=== PATIENT | female | born 1980 ===

== ENCOUNTER 2017-11-22 13:27 | Emergency (ER) | payer OTHER ==
[2017-11-22 13:58] VITALS: BP 120/80; PULSE 88; RESP 19; TEMP 97; O2SAT 100
--- NOTE | 2017-11-22 14:09 | ED PDOC ---
Lower Extremity Pain/Injury Time Seen by Provider: 11/22/17 14:06 Chief Complaint (Nursing): Lower Extremity Problem/Injury Chief Complaint (Provider): left foot pain History Per: Patient History/Exam Limitations: no limitations Onset/Duration Of Symptoms: Days (x10 days) Current Symptoms Are (Timing): Still Present Additional Complaint(s): Andressa Beasley is a 37 year old female, with no significant past medical history, who presents to the emergency department complaining of left heel pain onset for x10 days. Patient reports she accidentally stepped on a piece of glass two Sundays ago. Patient states she still has pain and is concerned for foreign body. She believes tetanus is up to date. She denies any fever, chills, other injuries or other medical complaints. PMD: Joel Bianchi Past Medical History Reviewed: Historical Data, Nursing Documentation, Vital Signs Vital Signs: Last Vital Signs Temp 97.0 F L 11/22/17 13:55 Pulse 88 11/22/17 13:55 Resp 19 11/22/17 13:55 BP 120/80 11/22/17 13:55 Pulse Ox 100 11/22/17 13:55 - Medical History PMH: No Chronic Diseases - Surgical History Surgical History: No Surg Hx - Family History Family History: States: Unknown Family Hx - Home Medications Home Medications: Ambulatory Orders Medication Instructions Recorded Vit#96/Ferrous Fum/FA 1 tab PO DAILY 09/23/14 [ Tablet] Ibuprofen [Motrin Tab] 600 mg PO Q6 PRN #30 tab 03/16/15 Cephalexin [Keflex] 500 mg PO TID #21 capsule 11/22/17 - Allergies Allergies/Adverse Reactions: Allergies Allergy/AdvReac Type Severity Reaction Status Date / Time No Known Allergies Allergy Verified 08/06/14 16:52 Review of Systems ROS Statement: Except As Marked, All Systems Reviewed And Found Negative Constitutional: Negative for: Fever, Chills Musculoskeletal: Positive for: Foot Pain (left heel) Physical Exam - Reviewed Nursing Documentation Reviewed: Yes Vital Signs Reviewed: Yes - Physical Exam Appears: Positive for: Non-toxic, No Acute Distress Head Exam: Positive for: ATRAUMATIC, NORMOCEPHALIC Skin: Positive for: Normal Color, Warm, Dry Eye Exam: Positive for: Normal appearance, EOMI, PERRL Neck: Positive for: Painless ROM Respiratory: Negative for: Respiratory Distress Extremity: Positive for: Normal ROM (upper and lower extremities), Other (x1 8mm skin wound noted by the heel. No signs of erythema.). Negative for: Deformity, Swelling Neurologic/Psych: Positive for: Alert, Oriented. Negative for: Motor/Sensory Deficits - ECG O2 Sat by Pulse Oximetry: 100 (RA) Pulse Ox Interpretation: Normal - Progress ED Course And Treament: XRY OF FOOT: NO FOREIGN BODY Medical Decision Making Medical Decision Making: Time: 14:00 Initial Impression: left heel pain possible foreign body Initial Plan: --Foot left 3 views routine [RAD] --Reevaluation Scribe Attestation: Documented by Jorje Bolaños, acting as a scribe for Arnulfo Winchester PA-C Provider Scribe Attestation: All medical record entries made by the Scribe were at my direction and personally dictated by me. I have reviewed the chart and agree that the record accurately reflects my personal performance of the history, physical exam, medical decision making, and the department course for this patient. I have also personally directed, reviewed, and agree with the discharge instructions and disposition. Disposition - Clinical Impression Clinical Impression: Wound, open, foot - Patient ED Disposition Is Patient to be Admitted: No - Disposition Referrals: [facility] [Outside] [facility] [Outside] Disposition: Routine/Home Disposition Time: 14:52 Condition: FAIR Prescriptions: Cephalexin [Keflex] 500 mg PO TID #21 capsule Instructions: Wound Care (DC) Print Language: MICRONESIAN
--- NOTE | 2017-11-22 15:07 | RAD ---
PROCEDURE: Left Foot Radiographs. HISTORY: injury COMPARISON: None. FINDINGS: BONES: Bone alignment and mineralization are normal. There is no acute displaced fracture or bone destruction. There is a tiny plantar calcaneal spur. JOINTS: Normal. SOFT TISSUES: There is mild dorsal and lateral soft tissue swelling. OTHER FINDINGS: None. IMPRESSION: No acute fracture or dislocation. Mild dorsal and lateral soft tissue swelling.
== END 2017-11-22 15:05 | disposition home or self-care (01) ==
LOC: H.ER 13:27
DX: S91.302A Unspecified open wound, left foot, initial encounter (principal); Y92.89 Other specified places as the place of occurrence of the external cause